=== PATIENT | female | born 1990 | race Caucasian/White ===

== ENCOUNTER 2016-12-02 22:14 | Emergency (ER) | payer OTHER ==
[2016-12-02] MEDS ORDERED: Fentanyl 100 MCG/2 ML VIAL ONE (22:24)
[2016-12-02 22:33] LABS: #Basophils 0.1 thou/uL (0.0-0.2); #Eosinphils 0.2 thou/uL (0.0-0.7); #Lymphocytes 4.9 thou/uL (1.20-3.40); #Monocytes 1.2 thou/uL (0.11-0.59); #Neutrophils 6.1 thou/uL (1.40-6.50); %Basophils 0.7 % (0.0-1.0); %Eosinophils 1.9 % (0.0-10.0); %Lymphocytes 39.2 % (21.0-51.0); %Monocytes 9.4 % (0.0-10.0); Hematocrit 42.6 % (36.0-47.0); Mean Platelet Volume 6.7 fL (7.4-10.4); Red Blood Cell (RBC) Count 4.48 mill/uL (4.20-5.40); White Blood Cell (WBC) Count 12.4 thou/uL (4.8-10.8)
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
[2016-12-02 22:55] LABS: ALT (SGPT) 12 U/L (8-55); AST (SGOT) 18 U/L (5-34); Alkaline Phosphatase 59 U/L (40-150); Anion Gap 16 mmol/L (10-20); BUN (Urea Nitrogen) 11 mg/dL (7.0-18.7); Bilirubin, Total 0.3 mg/dL (0.2-1.2); Calc. Creatinine Clearance 0 mL/min (70-130); Calcium 9.7 mg/dL (7.8-10.44); Carbon Dioxide 20 mmol/L (22-29); Chloride 107 mmol/L (98-107); Estimated GFR-MDRD 82; Globulin 3.2 g/dL (2.4-3.5); Protein, Total 7.9 g/dL (6.0-8.3)
[2016-12-02] MEDS ORDERED: Lorazepam 2 MG/ML VIAL ONE (22:56)
== END 2016-12-02 23:10 | disposition short-term general hospital (02) ==
LOC: ERS 22:14
DX: T23.341A Burn of third degree of multiple right fingers (nail), including thumb, initial encounter (principal); T24.211A Burn of second degree of right thigh, initial encounter; T21.21XA Burn of second degree of chest wall, initial encounter; T20.20XA Burn of second degree of head, face, and neck, unspecified site, initial encounter; T21.20XA Burn of second degree of trunk, unspecified site, initial encounter; T31.44 Burns involving 40-49% of body surface with 40-49% third degree burns; X02.0XXA Exposure to flames in controlled fire in building or structure, initial encounter
CPT/HCPCS: 71010; 80053; 85025; 93005; 96365; 96375; J2060; J3010

== ENCOUNTER 2017-02-15 14:08 | Outpatient (CLI) | payer OTHER | END 2017-02-15 14:09 | disposition home or self-care (01) | LOC: CTENTCT 14:08 | PROVIDERS: ATTEND Specialist | DX: J32.8 Other chronic sinusitis (principal) | CPT/HCPCS: 70486 ==